=== PATIENT | female | born 1985 ===

== ENCOUNTER 2021-01-07 14:12 | Emergency (ER) | payer BC ==
[~2021-01-07] VITALS: Ht 152.4 cm; Wt 45.4 kg
[2021-01-07] MEDS ORDERED: MUPIROCIN22 GM TOP (15:39)
[2021-01-07] MEDS ORDERED: KETO10TA2 PO (15:39)
[2021-01-07] MEDS ORDERED: AMOX-CLAV 875-1 EAC1 PO (15:39)
[2021-01-07] MEDS ORDERED: INTESTINEX680 M1 PO (15:39)
[2021-01-07] MEDS ORDERED: SALINE WOUND W210 M1 (16:19)
== END 2021-01-07 16:05 | disposition home or self-care (01) ==
LOC: ER 14:12
DX: S01.521A Laceration with foreign body of lip, initial encounter (principal); S80.212A Abrasion, left knee, initial encounter; S60.512A Abrasion of left hand, initial encounter; S60.511A Abrasion of right hand, initial encounter; V00.831A Fall from motorized mobility scooter, initial encounter; Y93.I9 Activity, other involving external motion; Y92.414 Local residential or business street as the place of occurrence of the external cause; Y99.8 Other external cause status